=== PATIENT | female | born 1980 | race African-American/Black ===

== ENCOUNTER 2021-04-09 20:07 | Emergency (ER) | payer MEDICAID ==
[~2021-04-09] VITALS: Ht 170.2 cm; Wt 59.0 kg
[2021-04-09 21:43] VITALS: BP 173/106
[2021-04-09] MEDS ORDERED: KETOROLAC 60MG/2ML VIAL IM ONE (21:45)
[2021-04-09] MEDS ORDERED: CHLO473M2 MT (21:51)
[2021-04-09] MEDS ORDERED: TRAM50TA3 MT (21:51)
[2021-04-09] MEDS ORDERED: IBUP-2029 MT (21:51)
[2021-04-09] MEDS ORDERED: AMOX-494 MT (21:51)
[2021-04-09] MEDS ORDERED: CLONIDINE 0.1MG TABLET PO ONE (22:00)
[2021-04-09 22:15] LABS: *AMPHETAMINES SCREEN URINE NEGATIVE (NEGATIVE); *BARBITURATES SCREEN URINE NEGATIVE (NEGATIVE); *BENZODIAZEPINES SCREEN URINE NEGATIVE (NEGATIVE); *COCAINE SCREEN URINE NEGATIVE (NEGATIVE); METHADONE URINE SCREEN NEGATIVE (NEGATIVE); OPIATES URINE SCREEN NEGATIVE (NEGATIVE); PHENCYCLIDINE URINE SCREEN NEGATIVE (NEGATIVE)
[2021-04-09 22:17] LABS: CANNABINOID URINE SCREEN NEGATIVE (NEGATIVE)
== END 2021-04-09 22:18 | disposition home or self-care (01) ==
LOC: ER 20:07 → EDBD 20:07 → ER 22:18
DX: R68.84 Jaw pain (principal); I10 Essential (primary) hypertension; Z91.14 Patient's other noncompliance with medication regimen; Z88.6 Allergy status to analgesic agent
CPT/HCPCS: 80305; 81025; 96372; 99283; J1885